=== PATIENT | male | born 1995 | race Two or more races ===

== ENCOUNTER 2024-08-09 14:43 | Emergency (ER) | payer OTHER, SELFPAY ==
[2024-08-09 15:04] VITALS: BP 155/93; PULSE 78; RESP 18; TEMP 36.6; O2SAT 96; BMI 37.4
--- NOTE | 2024-08-09 15:20 | PD.EDADULT ---
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 The patient was standing on top of the transformer and slipped on oil, the patient was wearing a full torso harness, and the fall was stopped approximately 3 feet off the ground. Since then the patient denies loss of consciousness also altered level of consciousness. No nausea vomiting diarrhea. No shortness of breath or difficulty breathing. Related Data Allergies Allergy/AdvReac Type Severity Reaction Status Date / Time No Known Allergies Allergy Verified 08/09/24 14:47 Review of Systems Review of Systems Narrative Review of Systems: GEN: No fever, no chills, no weight loss EYES: No discharge, no visual changes, no pain HEENT: No ear pain, no congestion, no sore throat, neck pain PULM: No shortness of breath, no cough, no congestion CV: + chest pain, no dyspnea on exertion, no palpitations GI: No nausea, no vomiting, no diarrhea, no pain, no constipation : No frequency, no urgency, no dysuria MUSC/SKEL: No joint pain, no back pain, + left thigh pain SKIN: No rash PSYCH: No hallucinations, no depression HEME/LYMPH: No easy bleeding or bruising tendencies NEURO: No weakness, no headache ED Exam Narrative Physical exam: [General: In mild discomfort not in any acute distress Head normocephalic, no step-offs hematomas induration ulcerations HEENT: Eyes pupils are PERRLA EOMs are intact and no entrapment nose: No rhinorrhea epistaxis mouth pink moist membranes uvula is midline swallow symmetrical phonation is normal. No pops or clicks with palpation of the TMJ during mastication, no raccoon's eyes or macario signs. No otorrhea. Neck is supple, full range of motion flexion extension and tension pain with palpation on the lower cervical paraspinals with tenderness to palpation no cervical spinous process tenderness with palpation. No neck edema no JVD. Chest equal chest rise nontender to palpation, no asymmetrical chest rise no gross abnormalities there is tenderness to palpation to the right chest wall and midaxillary line. No obvious deformity or ecchymosis. Respiratory: Clear to auscultation no wheezes crackles or rubs CV: Rate rhythm is regular no murmurs rubs or clicks Abdomen is soft nontender no masses positive bowel sounds all 4 quadrants Back: No CVA tenderness no spinous process tenderness from cervical spine thoracic and lumbar spine Skin: Abrasions to the left hand, the right inner upper arm. No full-thickness lacerations. Intact no petechiae rash induration ulceration or crepitus Extremities: Tenderness to palpation to the medial aspect of the left thigh no obvious ecchymosis no edema. No pain with palpation of the left knee full range of motion without pops or clicks. Cap refill in the digits less than 2 seconds. Moving all extremity against resistance cap refill less than 2 seconds neurosensory intact Neuro: Awake alert oriented x3 Glascow coma 15 no focal deficits] Course Quality Measures none Orders Category Date Time Status CT Screening NOW Care 08/09/24 15:[address] cervical spine wo con Stat Exams 08/09/24 15:[address] chest abdomen pelvis w Stat Exams 08/09/24 15:[address] head/brain wo con Stat Exams 08/09/24 15:28 Completed CBC Stat Lab 08/09/24 15:39 Completed CMP [Comprehensive Metabolic Panel] Stat Lab 08/09/24 15:39 Completed PT [Prothrombin Time with INR] Stat Lab 08/09/24 15:39 Completed PTT [Partial Thromboplastin Time] Stat Lab 08/09/24 15:39 Completed Vital Signs Vital signs: Vital Signs Temperature 98 F 08/09/24 15:04 Pulse Rate 78 08/09/24 15:04 Respiratory Rate 18 08/09/24 15:04 Blood Pressure 155/93 H 08/09/24 15:04 Pulse Oximetry (%) 96 08/09/24 15:04 Oxygen Delivery Method Room Air 08/09/24 15:04 [facility] Patient data External records reviewed:: [facility] previous records Clinical information provided by:: patient Social determinants that could affect healthcare access:: none Patient has the following chronic illnesses:: None How is presenting disease/condition affected by chronic disease/condition?: uneffected by Evaluation data The following diagnostics were reviewed and interpreted by me:: lab results and radiology exam(s) Lab and/or radiology exams considered but not ordered:: CBC shows no acute leukocytosis anemia thrombocytopenia CMP shows no acute electrolyte imbalances renal impairment transaminitis or T. bili elevation Coags within acceptable limits CT head and C-spine as interpreted by me read by radiology negative for any acute finding requires emergent or immediate intervention CT chest and pelvis with IV contrast is negative is interpreted by me and read by radiology for any acute finding requires emergent or immediate intervention. Interpretation Summary: Patient has a 1 cm full-thickness laceration to the blade of the fifth digit left hand with the patient is refusing suturing states and he will take care of it himself . Medications Medications considered but not ordered:: None Medication administrations:: None Consultations Consultation(s) initiated? (list below): No Diagnosis Differential Diagnosis ED Complaint MDM: Closed head injury neck fracture chest contusion pneumothorax Most likely diagnosis given after review of the tests above:: Fall chest contusion leg contusion skin abrasion finger laceration Admission Indicated Admission indicated?: not indicated Explain why admission is indicated or not indicated:: Stable for outpatient follow-up Admission Request Was there a request for admission?: No Disposition Plan Disposition Plan: Discharge Discharge Attestation Discharge Attestation: The patient and all family members were given an opportunity to ask questions and understood the discharge instructions. Discharge instructions specifically effects, indications for sooner follow up or return to the emergency department, and the expected course of current diagnosis. Patient condition: Stable Medical Decision Making Differential Diagnosis Differential Diagnosis: Closed head injury neck fracture chest contusion pneumothorax Lab Data 08/09/24 15:39 08/09/24 15:39 Labs: Lab Results 08/09/24 Range/Units 15:39 WBC 5.8 (3.8-10.6) Thou/mm3 RBC 5.85 (4.50-5.90) Miln/mm3 Hgb 16.7 H (13.5-16.0) g/dL Hct 46.9 (41.0-53.0) % MCV 80 (80-100) fL MCH 28.5 (25.0-35.0) pg MCHC 35.6 (31.0-37.0) g/dl RDW Std Deviation 34.6 L (35.1-43.9) fL Plt Count 228 (140-440) Thou/mm3 Neut % (Auto) 70 (37-80) % Lymph % (Auto) 21 (10-50) % [place] % (Auto) 8 (0-12) % Eos % (Auto) 1 (0-10) % Baso % (Auto) 1 (0-2.5) % Neut # (Auto) 4.1 (1.8-7.7) Thou/mm3 Lymph # (Auto) 1.2 (1.0-4.8) Thou/mm3 [place] # (Auto) 0.5 (0.0-0.8) Thou/mm3 Eos # (Auto) 0.1 (0.0-0.5) Thou/mm3 Baso # (Auto) 0.0 (0.0-0.2) Thou/mm3 Immature Gran # (Auto) 0.01 H (0.00-0.00) Thou/mm3 Absolute Nucleated RBC 0.00 (0.00-0.00) Thou/mm3 Immature Gran % 0 (0-0) % Nucleated RBC % 0 (0) /100 WBC PT 11.8 (9.0-12.2) Seconds INR 1.1 (0.9-1.3) APTT 26.2 (22.0-36.0) Seconds Sodium 135 L (136-145) mMol/L Potassium 3.9 (3.4-5.1) mMol/L Chloride 101 (98-107) mMol/L Carbon Dioxide 23.9 (20.0-31.0) mMol/L Anion Gap 10 (7-16) BUN 12 (9-23) mg/dL Creatinine 0.9 (0.6-1.3) mg/dL Estim Creat Clear Calc 145.5 (>60) mL/min eGFR > 60 (60 - ) See Note BUN/Creatinine Ratio 13 (12-20) Ratio Glucose 248 H (74-106) mg/dL Calculated Osmolality 277 (275-295) Calcium 9.6 (8.3-10.6) mg/dL Corrected Calcium 9.6 (8.5-10.1) mg/dL Total Bilirubin 1.3 H (0.3-1.2) mg/dL AST 172 H (0-34) U/L ALT 324 H (10-49) U/L Alkaline Phosphatase 135 H (46-116) U/L Total Protein 7.1 (5.7-8.2) gm/dL Albumin 4.9 (3.5-5.0) gm/dL Globulin 2.2 L (2.3-3.5) gm/dL Albumin/Globulin Ratio 2.2 (1.2-2.2) Discharge Plan Plan Patient Disposition: HOME (Self Care) Patient condition on transfer: Stable Problem List Clinical Impression: Fall, Chest wall contusion, Contusion of leg, Abrasion of skin, Finger laceration Patient/Caregiver Discharge Instructions Education Materials: ED Abrasions, ED Contusion, Lower Extremity, ED Chest Wall Contusion Additional Instructions: Take ibuprofen or Tylenol for pain, keep the abrasions laceration clean dry and intact they will heal over time. Any worsening of symptoms such as shortness of breath difficulty breathing nausea vomiting headache blurred vision or loss of consciousness return immediately to the emergency room for reevaluation. Print Language: Maori Stand Alone Forms: Kira Award Info., Work/School Release, Patient Portal Info Letter PA/PLANT SUPERVISOR Supervising Physician PA/PLANT SUPERVISOR Supervising Physician: Rommel Beckham ENP
--- NOTE | 2024-08-09 15:28 | XR_ITS ---
Examination: CT chest with intravenous contrast CT abdomen with intravenous contrast CT pelvis with intravenous contrast 2-D coronal and sagittal reconstructions Time of exam: August 09, 2024 1615 hours INDICATIONS: Patient fell today with injury to the chest and abdomen, chest pain abdomen pain CTDI: vol (mGy) : 13.5 DLP: (mGycm): 1126 Technique: Multiple axial images of the chest, abdomen and pelvis with intravenous contrast, 3.0 mm slice thickness. Images obtained post intravenous injection Isovue 370 60 cc. 2-D sagittal and coronal reconstructions. Low dose protocols were performed. One or more of the following dose reduction techniques were used; automated exposure control, adjustment of the mA and/or KV according to patient size, use of iterative reconstruction technique. Findings: Thoracic aorta pulmonary arteries intact No hemopericardium No pneumothorax pulmonary contusion or hemothorax Sternal segments thoracic vertebral bodies intact Ribs appear intact No liver splenic or renal laceration, no perinephric hematoma No gallstones No pancreatic mass Abdominal aorta intact No free blood in the abdomen or pelvis Normal appendix Negative for pneumoperitoneum Urinary bladder intact Fat-containing left inguinal hernia Hips bones of the pelvis lumbar vertebral bodies intact with grade 1 spondylolisthesis L5 on S1 IMPRESSION: Thoracic aorta pulmonary arteries intact No hemopericardium, pneumothorax, pulmonary contusion or hemothorax No abdominal parenchymal laceration Abdominal aorta intact No free blood in the abdomen or pelvis Osseous structures intact
--- NOTE | 2024-08-09 15:28 | XR_ITS ---
Examination: CT cervical spine without contrast 2-D sagittal reconstructions 2-D coronal reconstructions 3-D reconstructions. Exam date and time:August 09, 2024 1605 hours INDICATIONS: Patient fell today with into the neck, neck pain CTDI:vol (mGy) 9.50 DLP: (mGycm) 239 Technique: Multiple 2 mm axial sections of the cervical spine have been obtained. The coronal and sagittal reconstructions have been obtained. 3-D reconstructions have been obtained. Low dose protocols were performed. One or more of the following dose reduction techniques were used; automated exposure control, adjustment of the mA and/or KV according to patient size, use of iterative reconstruction technique. Findings: Axial sections demonstrate intact base of the skull. C1 exhibit satisfactory relationship to the odontoid. No acute cervical vertebral body fracture seen. Alignment posterior spinous processes satisfactory. Impression: No acute cervical fracture.
--- NOTE | 2024-08-09 15:28 | XR_ITS ---
Examination: CT brain head without contrast. 2-D sagittal coronal reconstructions Date and time of exam:August 09, 2024 1605 hours INDICATIONS: Patient fell today with injury to the head, head pain CTDI: vol (mGy):53.1 DLP: (mGycm):1105 Technique: Multiple CT axial sections of the brain have been obtained, 5 mm slice thickness. Contrast has not been administered. 2-D sagittal, coronal reconstructions have been obtained Low dose protocols were performed. One or more of the following dose reduction techniques were used; automated exposure control, adjustment of the mA and/or KV according to patient size, use of iterative reconstruction technique. Findings: No significant ventricular enlargement. Intra-axial or extra-axial hemorrhage density is not seen. No mass effect or midline shift Basal cisterns are not remarkable. Fourth ventricle is midline. Cranial vault intact. Impression: Negative for acute hemorrhage, mass effect or midline shift
[2024-08-09 15:53] LABS: Basophils % (Auto) 1 % (0-2.5); Eosinophils # (Auto) 0.1 Thou/mm3 (0.0-0.5); Eosinophils % (Auto) 1 % (0-10); Hematocrit 46.9 % (41.0-53.0); Hemoglobin 16.7 g/dL (13.5-16.0); Immature Granulocytes % (Auto) 0 % (0-0); Immature Granulocytes Auto 0.01 Thou/mm3 (0.00-0.00); Lymphocytes # (Auto) 1.2 Thou/mm3 (1.0-4.8); Lymphocytes % (Auto) 21 % (10-50); Mean Corpuscular HGB Conc 35.6 g/dl (31.0-37.0); Mean Corpuscular Hemoglobin 28.5 pg (25.0-35.0); Mean Corpuscular Volume 80 fL (80-100); Monocytes # (Auto) 0.5 Thou/mm3 (0.0-0.8); Monocytes % (Auto) 8 % (0-12); Neutrophils # (Auto) 4.1 Thou/mm3 (1.8-7.7); Neutrophils % (Auto) 70 % (37-80); Nucleated Red Blood Cell % 0 /100 WBC (0); Platelet Count 228 Thou/mm3 (140-440); RDW Standard Deviation 34.6 fL (35.1-43.9); Red Blood Count 5.85 Miln/mm3 (4.50-5.90); White Blood Count 5.8 Thou/mm3 (3.8-10.6)
[2024-08-09 16:06] LABS: Alanine Aminotransferase 324 U/L (10-49); Albumin, Serum 4.9 gm/dL (3.5-5.0); Albumin/Globulin Ratio 2.2 (1.2-2.2); Alkaline Phosphatase 135 U/L (46-116); Anion Gap 10 (7-16); Aspartate Amino Transferase 172 U/L (0-34); BUN/Creatinine Ratio 13 Ratio (12-20); Bilirubin,Total 1.3 mg/dL (0.3-1.2); Blood Urea Nitrogen 12 mg/dL (9-23); Calcium 9.6 mg/dL (8.3-10.6); Calcium (Corrected) 9.6 mg/dL (8.5-10.1); Carbon Dioxide 23.9 mMol/L (20.0-31.0); Chloride 101 mMol/L (98-107); Creatinine (Component) 0.9 mg/dL (0.6-1.3); Estimated Creatinine Clearance 145.5 mL/min (>60); Globulin 2.2 gm/dL (2.3-3.5); Glucose 248 mg/dL (74-106); Osmolality,Calculated 277 (275-295); Potassium 3.9 mMol/L (3.4-5.1); Sodium 135 mMol/L (136-145); Total Protein 7.1 gm/dL (5.7-8.2); eGFR > 60 See Note
[2024-08-09 16:21] LABS: INR 1.1 (0.9-1.3); Partial Thromboplastin Time 26.2 Seconds (22.0-36.0); Prothrombin Time 11.8 Seconds (9.0-12.2)
[2024-08-09 17:50] VITALS: BP 135/74; PULSE 75; RESP 18; TEMP 36.6; O2SAT 99
== END 2024-08-09 17:50 | disposition home or self-care (01) ==
PROVIDERS: Registered Nurse General Practice; Emergency Provider Emergency Medicine
DX: S20.219A Contusion of unspecified front wall of thorax, initial encounter (principal); S80.10XA Contusion of unspecified lower leg, initial encounter; S60.512A Abrasion of left hand, initial encounter; S40.811A Abrasion of right upper arm, initial encounter; S61.217A Laceration without foreign body of left little finger without damage to nail, initial encounter; S19.9XXA Unspecified injury of neck, initial encounter; S09.90XA Unspecified injury of head, initial encounter; W17.89XA Other fall from one level to another, initial encounter; Y99.0 Civilian activity done for income or pay
CPT/HCPCS: 36415; 70450; 71260; 72125; 74177; 80053; 85025; 85610; 85730; 99285; A4649; Q9967